=== PATIENT | female | born 1940 | race Caucasian/White ===

== ENCOUNTER 2016-07-21 21:22 | Observation (INO) | payer MEDICARE ==
[~2016-07-21] VITALS: Ht 175.3 cm; Wt 81.3 kg
[~2016-07-21 21:22] MED LIST: ASPI-94 PO; HYDR12.57 PO; MACR100C PO; MEVA40TA PO; VIVE0.05 TD
[2016-07-21 21:42] VITALS: BP 169/78; PULSE 65; RESP 18; TEMP 97.7; O2SAT 96
[2016-07-21] MEDS ORDERED: ESTR1DIS4 T-DERMAL (21:54)
[2016-07-21] MEDS ORDERED: HYDR12.57 PO (21:54)
[2016-07-21] MEDS ORDERED: LOVA40TA PO (21:54)
[2016-07-21] MEDS ORDERED: ASPI81CH CHEW (21:54)
[2016-07-21] MEDS ORDERED: SODIUM CHLOR 0.9% 1000 ML INJ 1,000 ML IV SCH ×2 (22:04→23:16)
[2016-07-21] MEDS ORDERED: ONDANSETRON HCL 4 MG/2 ML VIAL IVP ONE (22:15)
[2016-07-21] MEDS ORDERED: SODIUM CHLORIDE 0.9% FLUSH 10 ML FLUSH IV FLUSH PRN ×2 (22:15→23:30)
[2016-07-21] MEDS ORDERED: HYDROmorphone HCL PF 1 MG/ML VIAL IVS ONE (22:15)
--- NOTE | 2016-07-21 22:24 | PD ---
HPI Chief Complaint: Abdominal Pain Time Seen by Provider: 21:48 Travel History International Travel<30 days: No Contact w/Intl Traveler<30days: [place] Country Traveled to: [place], [place] Traveled to known affect area: No History of Present Illness HPI Is a 76-year-old woman presents emergent [place] of severe abdominal pain. States abdominal pain came on gradually around 4 PM or so. No nausea vomiting. No change in her bowel movements. Last bowel movement was around 8 PM was normal. No urinary symptoms. No fevers or chills. 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 She's done well since then. States she gets abdominal pains that are mild time to time, but never this severe. Only other abdominal surgeries hysterectomy. States she was feeling well and healthy before the onset of this pain. History Past Medical History Narrative Medical Questionable SLE, patient had a pericardiocentesis for paracardial effusion and was on medicines for lupus, but states that she is not taking any medicines now Hypertension on hyperlipidemia History of bowel perforation requiring resection and colostomy in August 2011, reversed in November 2011 Menopausal: Yes Social History Alcohol Use: Yes (SOCIALLY- WINE) Tobacco Use: No (QUIT AT AGE 30) Allergies-Medications (Allergen,Severity, Reaction): Coded Allergies: Iodine (Verified Allergy, Severe, Anaphylaxis, 07/21/16) Morphine (Verified Allergy, Severe, HALLUCINATIONS, 07/21/16) Shellfish (Verified Allergy, Severe, Anaphylaxis, 07/21/16) Reported Meds & Prescriptions Reported Meds & Active Scripts Active Reported Hydrochlorothiazide 12.5 Mg Cap 12.5 Mg PO DAILY Aspirin 81 Mg Chew 81 Mg CHEW DAILY Estradiol Patch 84 HR (Estradiol) 0.05 Mg/24 Hr Patch 1 Patch T-DERMAL 2XWEEK Remove old patch and discard when new patch being placed. Change same days each week. Lovastatin 40 Mg Tab 40 Mg PO DAILY Review of Systems Except as stated in HPI: all other systems reviewed are Neg Physical Exam Narrative GENERAL: Well-appearing 76-year-old woman, no acute distress. SKIN: Focused skin assessment warm/dry. NECK: Trachea midline. No JVD. CARDIOVASCULAR: Regular rate and rhythm. No murmur appreciated. RESPIRATORY: No accessory muscle use. Clear to auscultation. Breath sounds equal bilaterally. GASTROINTESTINAL: Normal contour and appearance. Abdomen soft, mild diffuse tenderness. No rebound or guarding. MUSCULOSKELETAL: No obvious deformities. No clubbing. No cyanosis. No edema. NEUROLOGICAL: Awake and alert. No obvious cranial nerve deficits. Motor grossly within normal limits. Normal speech. PSYCHIATRIC: Anxious appearing. Data Data Last Documented VS Vital Signs Date Time Temp Pulse Resp B/P Pulse Ox O2 Delivery O2 Flow Rate FiO2 07/21/16 22:45 69 16 141/76 96 Room Air 07/21/16 21:42 97.7 Orders Complete Blood Count With Diff (07/21/16 22:04) Comprehensive Metabolic Panel (07/21/16 22:04) Lipase (07/21/16 22:04) Lactic Acid (07/21/16 22:04) Urinalysis - C+S If Indicated (07/21/16 22:04) Iv Access Insert/Monitor (07/21/16 22:04) Ecg Monitoring (07/21/16 22:04) Oximetry (07/21/16 22:04) Ondansetron Inj (Zofran Inj) (07/21/16 22:15) Sodium Chlor 0.9% 1000 Ml Inj (Ns 1000 M (07/21/16 22:04) Sodium Chloride 0.9% Flush (Ns Flush) (07/21/16 22:15) Hydromorphone Pf Inj (Dilaudid Pf Inj) (07/21/16 22:15) Ct Abd/Pel W/O Iv Contrast (07/21/16 ) Labs Laboratory Tests Test 07/21/16 22:10 White Blood Count 10.9 TH/MM3 Red Blood Count 4.65 MIL/MM3 Hemoglobin 13.8 GM/DL Hematocrit 41.2 % Mean Corpuscular Volume 88.6 FL Mean Corpuscular Hemoglobin 29.6 PG Mean Corpuscular Hemoglobin 33.5 % Concent Red Cell Distribution Width 13.5 % Platelet Count 293 TH/MM3 Mean Platelet Volume 7.7 FL Neutrophils (%) (Auto) 85.7 % Lymphocytes (%) (Auto) 9.7 % Monocytes (%) (Auto) 3.3 % Eosinophils (%) (Auto) 0.3 % Basophils (%) (Auto) 1.0 % Neutrophils # (Auto) 9.3 TH/MM3 Lymphocytes # (Auto) 1.1 TH/MM3 Monocytes # (Auto) 0.4 TH/MM3 Eosinophils # (Auto) 0.0 TH/MM3 Basophils # (Auto) 0.1 TH/MM3 CBC Comment DIFF FINAL Differential Comment Sodium Level 140 MEQ/L Potassium Level 3.4 MEQ/L Chloride Level 102 MEQ/L Carbon Dioxide Level 30.5 MEQ/L Anion Gap 8 MEQ/L Blood Urea Nitrogen 17 MG/DL Creatinine 0.85 MG/DL Estimat Glomerular Filtration 65 ML/MIN Rate Random Glucose 120 MG/DL Lactic Acid Level 1.0 mmol/L Calcium Level 9.7 MG/DL Total Bilirubin 0.7 MG/DL Aspartate Amino Transf 20 U/L (AST/SGOT) Alanine Aminotransferase 25 U/L (ALT/SGPT) Alkaline Phosphatase 55 U/L Total Protein 7.2 GM/DL Albumin 3.8 GM/DL Lipase 128 U/L [facility] Medical Decision Making Medical Screen Exam Complete: Yes Emergency Medical Condition: Yes Interpretation(s) LABS: CBC is unremarkable. CMP is unremarkable. Lactate 1.[address] abdomen and pelvis: Multiple mildly dilated small bowel with some mild air- fluid levels. Evidence of prior abdominal surgery. Cannot exclude small bowel obstruction. Differential Diagnosis Abdominal pain, obstruction, adhesions, UTI, weakness, other Narrative Course Medical decision making INITIAL: 76-year-old woman, presents to the emergency department complaining of abdominal pain. No other GI symptoms, no nausea vomiting diarrhea urinary symptoms or other. She denies previous history of severe abdominal pains. She had one previous episode where she was seen for abdominal pain, no urinary complaints was sinus with UTI based on a handful white blood cells in her urine. She states she has done well since then. We'll recheck CT, labs, urine. She may be having some anxiety symptoms given her surgical history. FINAL: 76-year-old with previous bowel perforation and previous colostomy, now reversed, presents with abdominal pain of unclear etiology. CT scans equivocal with some mildly dilated small bowel loops in a few air-fluid levels. She does not appear distended. She is not vomiting. Pains improved after medication. We'll plan on admission for observation. Diagnosis Primary Impression: Abdominal pain Admitting Information Admitting Physician Requests: Observation Jose G Gallegos MD Jul 21, 2016 22:24
[2016-07-21 22:40] LABS: AUTOMATED NEUTROPHIL # 9.3 TH/MM3 (1.8-7.7); BASOPHIL # 0.1 TH/MM3 (0-0.2); CHLORIDE 102 MEQ/L (98-107); EOSINOPHIL % 0.3 % (0.0-4.0); HEMATOCRIT 41.2 % (35.0-46.0); LYMPH % 9.7 % (9.0-44.0); LYMPHOCYTE # 1.1 TH/MM3 (1.0-4.8); MEAN CELL VOLUME 88.6 FL (80.0-100.0); MEAN CORPUSCULAR HEMOGLOBIN 29.6 PG (27.0-34.0); MEAN CORPUSCULAR HGB CONC 33.5 % (32.0-36.0); MONO % 3.3 % (0.0-8.0); NEUT % 85.7 % (16.0-70.0); PLATELET COUNT 293 TH/MM3 (150-450); POTASSIUM 3.4 MEQ/L (3.5-5.1); RED BLOOD COUNT 4.65 MIL/MM3 (4.00-5.30); RED CELL DISTRIBUTION WIDTH 13.5 % (11.6-17.2); SODIUM (NA) 140 MEQ/L (136-145); WHITE BLOOD COUNT 10.9 TH/MM3 (4.0-11.0)
[2016-07-21 22:41] LABS: HEMO FLAGS DIFF FINAL
[2016-07-21 22:44] LABS: ANION GAP 8 MEQ/L (5-15); BICARBONATE 30.5 MEQ/L (21.0-32.0)
[2016-07-21 22:45] VITALS: BP 141/76; PULSE 69; RESP 16; O2SAT 96
[2016-07-21 22:45] LABS: BLOOD UREA NITROGEN 17 MG/DL (7-18)
[2016-07-21 22:47] LABS: ALT (GPT) 25 U/L (10-53); AST (GOT) 20 U/L (15-37); GLOMERULAR FILTRATION RATE 65 ML/MIN (>89)
[2016-07-21 22:49] LABS: TOTAL BILIRUBIN ADULT 0.7 MG/DL (0.2-1.0)
[2016-07-21 22:50] LABS: ALKALINE PHOSPHATASE 55 U/L (45-117)
--- NOTE | 2016-07-21 23:01 | RADHPO ---
EXAM DATE/TIME: 07/21/2016 22:25 [facility] COMPARISON: CT ABDOMEN & PELVIS W/O CONTRAST, March 14, 2014, 4:58. INDICATIONS : Severe mid abdominal pain. ORAL CONTRAST: No oral contrast ingested. RADIATION DOSE: 11.60 CTDIvol (mGy) MEDICAL HISTORY : Hypertension. SURGICAL HISTORY : Hysterectomy. Colostomy with reversal ENCOUNTER: Initial ACUITY: 1 day PAIN SCALE: 8/10 LOCATION: Bilateral abdomen TECHNIQUE: Volumetric scanning of the abdomen and pelvis was performed. Using automated exposure control and ad justment of the mA and/or kV according to patient size, radiation dose was kept as low as reasonably achievable to obtain optimal diagnostic quality images. FINDINGS: LOWER LUNGS: The visualized lower lungs are clear. LIVER: Stable 11 mm cyst left lobe. Stable low density lesion in the medial segment of the right lower lobe measuring 1.9 cm. These lesions cannot be further characterized on noncontrast study. No calcified gallstones. SPLEEN: Normal size without lesion. PANCREAS: Within normal limits. KIDNEYS: Normal in size and shape. There is no mass, stone, or hydronephrosis. ADRENAL GLANDS: Within normal limits. VASCULAR: There is no aortic aneurysm. BOWEL/MESENTERY: There are multiple mildly dilated loops of small bowel throughout the mid and lower abdomen measuring up to 3.1 cm in width. Only a few air-fluid levels seen. Anastomosis sutures seen in the rectosigm oid region. Scattered stool throughout the colon. No evidence of free fluid. ABDOMINAL WALL: Within normal limits. RETROPERITONEUM: There is no lymphadenopathy. BLADDER: No wall thickening or mass. REPRODUCTIVE: Within normal limits. INGUINAL: There is no lymphadenopathy or hernia. MUSCULOSKELETAL: Dilated sacral foramina of S2 bilaterally, stable from prior examination 2014. CONCLUSION: Multiple mildly dilated loops of small bowel with some mild air fluid levels. Evidence of prior abdo chucho surgery. Cannot exclude small bowel obstruction. Christian Julien MD on July 21, 2016 at 22:51 Board Certified Radiologist. This report was verified electronically.
[2016-07-21] MEDS ORDERED: LACTULOSE SYRUP 20 GM/30 ML CUP PO PRN (23:30)
[2016-07-21] MEDS ORDERED: BISACODYL 10 MG SUPP RECTAL PRN (23:30)
[2016-07-21] MEDS ORDERED: HYDROmorphone HCL PF 1 MG/ML VIAL IV PRN ×2 (23:30)
[2016-07-21] MEDS ORDERED: MAGNESIUM HYDROXIDE SUSP 30 ML CUP PO PRN (23:30)
[2016-07-21] MEDS ORDERED: SENNOSIDES 8.6 MG TAB PO PRN (23:30)
[2016-07-22] VITALS (7 sets, daily range): BP systolic 141–167; BP diastolic 67–85; PULSE 58–88; RESP 14–16; TEMP 96.1–97.5; O2SAT 95–99
[2016-07-22 00:41] LABS: BLOOD, URINE SMALL (NEG); GLUCOSE,URINE NEG (NEG); KETONE, URINE TRACE mg/dL (NEG); NITRITE,URINE NEG (NEG)
[2016-07-22 00:50] LABS: URINE COLOR YELLOW (YELLW/STRAW); WBC, URINE 15-19 /hpf (0-5)
[2016-07-22 00:51] LABS: BACTERIA, URINE MOD /hpf; COMMENT (UR) CULTURE INDICATED; CULTURE IF INDICATED CULTURE INDICATED; SQUAMOUS EPITHELIAL CELL URINE > 8 /hpf (0-5)
[2016-07-22] MEDS: DOCUSATE SODIUM 50 MG/SENNA 8.6 MG TAB PO SCH ×2 (08:44→20:27)
[2016-07-22 08:45] LABS: BASOPHIL # 0.1 TH/MM3 (0-0.2); EOSINOPHIL % 0.5 % (0.0-4.0); HEMATOCRIT 38.2 % (35.0-46.0); HEMO FLAGS DIFF FINAL; LYMPH % 20.6 % (9.0-44.0); LYMPHOCYTE # 1.2 TH/MM3 (1.0-4.8); MEAN CELL VOLUME 89.2 FL (80.0-100.0); MEAN CORPUSCULAR HEMOGLOBIN 29.8 PG (27.0-34.0); MEAN CORPUSCULAR HGB CONC 33.4 % (32.0-36.0); MONO % 6.2 % (0.0-8.0); NEUT % 71.7 % (16.0-70.0); PLATELET COUNT 270 TH/MM3 (150-450); RED BLOOD COUNT 4.29 MIL/MM3 (4.00-5.30); RED CELL DISTRIBUTION WIDTH 13.7 % (11.6-17.2); WHITE BLOOD COUNT 5.7 TH/MM3 (4.0-11.0)
[2016-07-22] MEDS: SODIUM CHLORIDE 0.9% FLUSH 10 ML FLUSH IV FLUSH SCH ×2 (08:45→20:29)
[2016-07-22] MEDS: NS + KCL 20 MEQ INJ 1,000 ML IV SCH ×2 (08:45→18:37)
[2016-07-22 08:54] LABS: CHLORIDE 104 MEQ/L (98-107); POTASSIUM 3.7 MEQ/L (3.5-5.1); SODIUM (NA) 142 MEQ/L (136-145)
[2016-07-22 08:57] LABS: ANION GAP 6 MEQ/L (5-15)
[2016-07-22 08:58] LABS: BLOOD UREA NITROGEN 14 MG/DL (7-18); MAGNESIUM 2.1 MG/DL (1.5-2.5)
[2016-07-22 09:01] LABS: ALT (GPT) 19 U/L (10-53); AST (GOT) 15 U/L (15-37); GLOMERULAR FILTRATION RATE 80 ML/MIN (>89)
[2016-07-22 09:02] LABS: TOTAL BILIRUBIN ADULT 0.8 MG/DL (0.2-1.0)
[2016-07-22 09:03] LABS: ALKALINE PHOSPHATASE 51 U/L (45-117)
--- NOTE | 2016-07-22 10:22 | HHI.HP ---
[facility] Primary Care Physician August Alejandra MD Admission Diagnosis abdominal pain, rule out obstruction Diagnoses: Chief Complaint: Abdominal pain Travel History International Travel<30 Days: No Contact w/Intl Traveler <30 Da: [place] Country Traveled to: [place], [place] Traveled to Known Affected Are: No History of Present Illness This is a 76-year-old female with a history of questionable SLE, pericardiocentesis for pericardial effusion, hypertension and hyperlipidemia. She presents to the emergency department because of acute severe dull constant lower abdominal pain for 5 hours not relieved with Tums. Denies nausea, vomiting, abdominal distention, fever, chills, UTI symptoms, constipation and diarrhea. She had regular bowel movement a few hours prior to admission. She presented to the hospital because she was concerned with her history of colonic rupture in 2011 requiring surgical resection and colostomy followed by reversal. She's done well since then. States she gets intermittent abdominal pains that are mild but not this severe. CT of the abdomen shows mildly dilated small bowel loops and few air-fluid levels small bowel obstruction cannot be excluded. Overnight she did well tolerated liquid diet denies abdominal pain. She has not passed gas or had a bowel movement. All other systems reviewed negative Review of Systems Except as stated in HPI: all other systems reviewed are Neg Past Family Social History Past Medical History As previously mentioned Past Surgical History Hysterectomy, cataract surgery, right foot bunion surgery Reported Medications Hydrochlorothiazide 12.5 Mg Cap 12.5 Mg PO DAILY Aspirin 81 Mg Chew 81 Mg CHEW DAILY Estradiol Patch 84 HR (Estradiol) 0.05 Mg/24 Hr Patch 1 Patch T-DERMAL 2XWEEK Remove old patch and discard when new patch being placed. Change same days each week. Lovastatin 40 Mg Tab 40 Mg PO DAILY Allergies: Coded Allergies: Iodine (Verified Allergy, Severe, Anaphylaxis, 07/21/16) Morphine (Verified Allergy, Severe, HALLUCINATIONS, 07/21/16) Shellfish (Verified Allergy, Severe, Anaphylaxis, 07/21/16) Family History No CAD or cancer Social History Occasional alcohol use. Quit tobacco at age 30 Physical Exam Vital Signs Vital Signs Date Time Temp Pulse Resp B/P Pulse Ox O2 Delivery O2 Flow Rate FiO2 07/22/16 08:45 16 07/22/16 08:00 97.0 58 16 144/67 98 07/22/16 01:59 97.5 74 14 146/74 96 07/22/16 00:44 88 16 167/72 99 Room Air 07/21/16 22:45 69 16 141/76 96 Room Air 07/21/16 21:42 97.7 65 18 169/78 96 Physical Exam GENERAL: This is a well-nourished, well-developed patient, in no apparent distress. SKIN: No rashes, ecchymoses or lesions. Cool and dry. HEAD: Atraumatic. Normocephalic. No temporal or scalp tenderness. EYES: Pupils equal round and reactive. Extraocular motions intact. No scleral icterus. No injection or drainage. ENT: Nose without bleeding, purulent drainage or septal hematoma. Throat without erythema, tonsillar hypertrophy or exudate. Uvula midline. Airway patent. NECK: Trachea midline. No JVD or lymphadenopathy. Supple, nontender, no meningeal signs. CARDIOVASCULAR: Regular rate and rhythm without murmurs, gallops, or rubs. RESPIRATORY: Clear to auscultation. Breath sounds equal bilaterally. No wheezes , rales, or rhonchi. GASTROINTESTINAL: Abdomen soft, non-tender, nondistended. No guarding. MUSCULOSKELETAL: Extremities without clubbing, cyanosis, or edema. No joint tenderness, effusion, or edema noted. No calf tenderness. Negative Homans sign bilaterally. NEUROLOGICAL: Awake and alert. Cranial nerves II through XII intact. Motor and sensory grossly within normal limits. Five out of 5 muscle strength in all muscle groups. Normal speech. Laboratory Laboratory Tests Test 07/21/16 07/22/16 07/22/16 22:10 00:30 07:45 Sodium Level 140 142 Potassium Level 3.4 3.7 Chloride Level 102 104 Carbon Dioxide Level 30.5 32.0 Anion Gap 8 6 Blood Urea Nitrogen 17 14 Creatinine 0.85 0.71 Estimat Glomerular Filtration 65 80 Rate Random Glucose 120 90 Lactic Acid Level 1.0 Calcium Level 9.7 9.9 Total Bilirubin 0.7 0.8 Aspartate Amino Transf 20 15 (AST/SGOT) Alanine Aminotransferase 25 19 (ALT/SGPT) Alkaline Phosphatase 55 51 Total Protein 7.2 6.0 Albumin 3.8 3.2 Lipase 128 White Blood Count 10.9 5.7 Red Blood Count 4.65 4.29 Hemoglobin 13.8 12.8 Hematocrit 41.2 38.2 Mean Corpuscular Volume 88.6 89.2 Mean Corpuscular Hemoglobin 29.6 29.8 Mean Corpuscular Hemoglobin 33.5 33.4 Concent Red Cell Distribution Width 13.5 13.7 Platelet Count 293 270 Mean Platelet Volume 7.7 7.5 Neutrophils (%) (Auto) 85.7 71.7 Lymphocytes (%) (Auto) 9.7 20.6 Monocytes (%) (Auto) 3.3 6.2 Eosinophils (%) (Auto) 0.3 0.5 Basophils (%) (Auto) 1.0 1.0 Neutrophils # (Auto) 9.3 4.0 Lymphocytes # (Auto) 1.1 1.2 Monocytes # (Auto) 0.4 0.4 Eosinophils # (Auto) 0.0 0.0 Basophils # (Auto) 0.1 0.1 CBC Comment DIFF FINAL DIFF FINAL Differential Comment Urine Color YELLOW Urine Turbidity CLOUDY Urine pH 7.0 Urine Specific [place] 1.010 Urine Protein NEG Urine Glucose (UA) NEG Urine Ketones TRACE Urine Occult Blood SMALL Urine Nitrite NEG Urine Bilirubin NEG Urine Leukocyte Esterase MOD Urine RBC 4-9 Urine WBC 15-19 Urine Squamous Epithelial > 8 Cells Urine Amorphous Sediment MOD Urine Bacteria MOD Microscopic Urinalysis Comment CULTURE INDICATED Magnesium Level 2.1 Date/Time Procedure Status Source Growth 07/22/16 00:30 Urine Culture Received Urine Clean Catch Pending Result Diagram: 07/22/16 0745 07/22/16 0745 Imaging Last Impressions Abdomen/Pelvis CT 07/21/16 0000 Signed Impressions: Service Date/Time: Thursday, July 21, 2016 22:25 - CONCLUSION: Multiple mildly dilated loops of small bowel with some mild air fluid levels. Evidence of prior abdominal surgery. Cannot exclude small bowel obstruction. Christian Julien MD Assessment and Plan Problem List: (1) Abdominal pain ICD Code: R10.9 Status: Acute Assessment and Plan This is a 76-year-old female who presents to the emergency department because of acute severe dull constant lower abdominal pain for 5 hours not relieved with Tums. Denies nausea, vomiting, abdominal distention, fever, chills, UTI symptoms, constipation and diarrhea. She had regular bowel movement a few hours prior to admission. She presented to the hospital because she was concerned with her history of colonic rupture in 2011 requiring surgical resection and colostomy followed by reversal. CT of the abdomen shows mildly dilated small bowel loops and few air-fluid levels small bowel obstruction cannot be excluded. Overnight she did well tolerated liquid diet denies abdominal pain. She has not passed gas or had a bowel movement. Repeat KUB today and continue IV fluids. Consider advancing diet. Increase activity. Continue pain management with IV dilaudid and bowel regimen Abnormal urinalysis. Denies UTI symptoms. Patient reports she always has abnormal urinalysis since she had colon surgery. She does not want to be treated unless urine culture is positive. Hypokalemia. Improved History of questionable SLE, pericardiocentesis for pericardial effusion, hypertension and hyperlipidemia. Continue outpatient medications as appropriate DVT prophylaxis with SCD and early ambulation Discussed Condition With Patient and ER staff Vincenzo Draper MD Jul 22, 2016 10:22
--- NOTE | 2016-07-22 10:44 | HHI.DCPOC ---
Discharge Care Plan Diagnosis: (1) Abdominal pain Your Health Problems Are: Difficulty with ADL Exercise Tolerance Goals to Promote Your Health * To prevent worsening of your condition and complications * To maintain your health at the optimal level Directions to Meet Your Goals Take your medications as prescribed Follow your dietary instruction Follow activity as directed Keep your appointments as scheduled Take your immunizations and boosters as scheduled If your symptoms worsen call your PCP, if no PCP go to Urgent Care Center or Emergency Room Smoking is Dangerous to Your Health. Avoid second hand smoke Call the 24-hour hour crisis hotline for domestic abuse at Vincenzo Draper MD Jul 22, 2016 10:44
--- NOTE | 2016-07-22 10:53 | RADHPO ---
EXAM DATE/TIME: 07/22/2016 10:29 [facility] COMPARISON: CT ABDOMEN & PELVIS W/O CONTRAST, July 21, 2016, 22:25. INDICATIONS : Abdomen pain MEDICAL HISTORY : None. SURGICAL HISTORY : Hysterectomy. colostomy with reversal ENCOUNTER: Subsequent ACUITY: 2 days PAIN SCORE: 2/10 LOCATION: Bilateral abdomen FINDINGS: Single AP supine view of the abdomen. Scattered gas and stool in the colon. Air in a non-distended st omach. Moderate bony degenerative findings of the lower lumbar spine. Oval calcific density in the le ft hemiabdomen at the level of L5 correlates with an apparent phlebolith on CT. CONCLUSION: Bowel gas pattern within normal limits. Aly Church MD on July 22, 2016 at 10:50 Board Certified Radiologist. This report was verified electronically.
[2016-07-23] VITALS: BP 141/67; PULSE 63; RESP 16; TEMP 97.6; O2SAT 96
[2016-07-23] MEDS: NS + KCL 20 MEQ INJ 1,000 ML IV SCH (05:09)
[2016-07-23 08:25] VITALS: BP 138/67; PULSE 61; RESP 15; TEMP 97.3; O2SAT 94
[2016-07-23] MEDS ORDERED: PRAVASTATIN SOD 40 MG TAB PO SCH (09:00)
[2016-07-23] MEDS: SODIUM CHLORIDE 0.9% FLUSH 10 ML FLUSH IV FLUSH SCH (09:00)
[2016-07-23] MEDS: DOCUSATE SODIUM 50 MG/SENNA 8.6 MG TAB PO SCH (09:52)
--- NOTE | 2016-07-23 11:51 | HHI.PR ---
Subjective Remarks Follow-up abdominal pain. She is feeling much better with no abdominal pain. She had a bowel movement and tolerating by mouth. Discussed with RN Objective Vitals Vital Signs Date Time Temp Pulse Resp B/P Pulse Ox O2 Delivery O2 Flow Rate FiO2 07/23/16 08:25 97.3 61 15 138/67 94 07/23/16 00:00 97.6 63 16 141/67 96 07/22/16 20:00 97.4 61 16 160/85 96 07/22/16 16:24 96.8 62 16 155/75 97 07/22/16 16:00 96.8 62 16 155/75 97 07/22/16 12:00 96.1 58 16 141/68 95 I/O 07/22/16 07/22/16 07/22/16 07/23/16 07/23/16 07/23/16 06:59 14:59 22:59 06:59 14:59 22:59 Intake Total 1250 ml 100 ml 276 ml 803 ml Balance 1250 ml 100 ml 276 ml 803 ml Intake Oral 250 ml 100 ml 240 ml IV Total 1000 ml 276 ml 563 ml # Voids 1 1 6 # Bowel Movements 0 Result Diagram: 07/22/16 0745 07/22/16 0745 Imaging Last Impressions Abdomen X-Ray 07/22/16 1007 Signed Impressions: Service Date/Time: Friday, July 22, 2016 10:29 - CONCLUSION: Bowel gas pattern within normal limits. Aly Church MD Abdomen/Pelvis CT 07/21/16 0000 Signed Impressions: Service Date/Time: Thursday, July 21, 2016 22:25 - CONCLUSION: Multiple mildly dilated loops of small bowel with some mild air fluid levels. Evidence of prior abdominal surgery. Cannot exclude small bowel obstruction. Christian Julien MD Objective Remarks GENERAL: This is a well-nourished, well-developed patient, in no apparent distress. SKIN: No rashes, ecchymoses or lesions. Cool and dry. HEAD: Atraumatic. Normocephalic. No temporal or scalp tenderness. EYES: Pupils equal round and reactive. Extraocular motions intact. No scleral icterus. No injection or drainage. ENT: Nose without bleeding, purulent drainage or septal hematoma. Throat without erythema, tonsillar hypertrophy or exudate. Uvula midline. Airway patent. NECK: Trachea midline. No JVD or lymphadenopathy. Supple, nontender, no meningeal signs. CARDIOVASCULAR: Regular rate and rhythm without murmurs, gallops, or rubs. RESPIRATORY: Clear to auscultation. Breath sounds equal bilaterally. No wheezes , rales, or rhonchi. GASTROINTESTINAL: Abdomen soft, non-tender, nondistended. No guarding. MUSCULOSKELETAL: Extremities without clubbing, cyanosis, or edema. No joint tenderness, effusion, or edema noted. No calf tenderness. Negative Homans sign bilaterally. NEUROLOGICAL: Awake and alert. Cranial nerves II through XII intact. Motor and sensory grossly within normal limits. Five out of 5 muscle strength in all muscle groups. Normal speech. Procedures None A/P Problem List: (1) Abdominal pain ICD Code: R10.9 Status: Acute Assessment and Plan This is a 76-year-old female who presents to the emergency department because of acute severe dull constant lower abdominal pain for 5 hours not relieved with Tums. Denies nausea, vomiting, abdominal distention, fever, chills, UTI symptoms, constipation and diarrhea. She had regular bowel movement a few hours prior to admission. She presented to the hospital because she was concerned with her history of colonic rupture in 2011 requiring surgical resection and colostomy followed by reversal. CT of the abdomen shows mildly dilated small bowel loops and few air-fluid levels small bowel obstruction cannot be excluded. Overnight she did well tolerated diet denies abdominal pain. She had a bowel movement. Repeat KUB within normal limits discontinue IV fluids. Increase activity. Continue pain management with IV dilaudid and bowel regimen Abnormal urinalysis. Denies UTI symptoms. Patient reports she always has abnormal urinalysis since she had colon surgery. She does not want to be treated unless urine culture is positive. Urine culture negative to date Hypokalemia. Improved History of questionable SLE, pericardiocentesis for pericardial effusion, hypertension and hyperlipidemia. Continue outpatient medications as appropriate DVT prophylaxis with SCD and early ambulation Discharge Planning Discharge patient to home Condition on discharge: Improved Regular Diet as tolerated Ad Lou activity Rx written: None Follow-up with primary care physician in one week Vincenzo Draper MD Jul 23, 2016 11:51
== END 2016-07-23 12:06 | disposition home or self-care (01) ==
LOC: PHED 21:22 → PHEDA 23:19 → PH3A 07-22 01:48
PROVIDERS: ADMIT Internal Medicine; ATTEND Internal Medicine
DX: R10.9 Unspecified abdominal pain (principal); R82.90 Unspecified abnormal findings in urine; I10 Essential (primary) hypertension; E87.6 Hypokalemia; E78.5 Hyperlipidemia, unspecified; Z87.891 Personal history of nicotine dependence; Z79.82 Long term (current) use of aspirin; Z91.013 Allergy to seafood; Z88.5 Allergy status to narcotic agent; Z88.8 Allergy status to other drugs, medicaments and biological substances
CPT/HCPCS: 74000; 74176; 80053; 81001; 83605; 83690; 83735; 85025; 87086; 96361; 96374; 96375; 99285; G0378; J1170; J2405; J3480; J7030

== ENCOUNTER 2016-08-02 22:21 | Observation (INO) | payer MEDICARE ==
[~2016-08-02] VITALS: Ht 175.3 cm; Wt 79.1 kg
[~2016-08-02 22:21] MED LIST changes: -ASPI-94 PO; +ASPI81CH CHEW; +ESTR1DIS4 T-DERMAL; +LOVA40TA PO; -MACR100C PO; -MEVA40TA PO; -VIVE0.05 TD
[2016-08-02 22:23] VITALS: BP 147/83; PULSE 73; RESP 16; TEMP 97.4; O2SAT 97
[2016-08-02] MEDS ORDERED: SODIUM CHLOR 0.9% 1000 ML INJ 1,000 ML IV SCH (22:54)
[2016-08-02] MEDS ORDERED: ONDANSETRON HCL 4 MG/2 ML VIAL IVP ONE (23:00)
[2016-08-02] MEDS ORDERED: SODIUM CHLORIDE 0.9% FLUSH 10 ML FLUSH IV FLUSH PRN (23:00)
[2016-08-02] MEDS ORDERED: HYDROmorphone HCL PF 2 MG/ML VIAL IVS ONE (23:00)
--- NOTE | 2016-08-02 23:08 | PD ---
HPI Chief Complaint: Abdominal Pain Time Seen by Provider: 22:31 Travel History International Travel<30 days: Yes Contact w/Intl Traveler<30days: Yes Name of Country Traveled to: [place] Traveled to known affect area: No History of Present Illness HPI This Is a 76-year-old woman presents emergent department complaining of severe abdominal pain. States she started getting abdominal pain around 6 PM or so. She had some on what for lunch. She's had nausea but no real vomiting. No change in her bowel movements. Less prominent was today was a little bit loose. No urinary symptoms. No fevers or chills. 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 She's done well since then. States she gets abdominal pains that are mild time to time, but not typically this severe. She was seen in the emergency department for abdominal pain 1 day on July 21, about 2 weeks ago. She has CT scan that showed some suggestion of small bowel obstruction with multiple mildly dilated loops of small bowel with some mild air -fluid levels. She was observed overnight, did well the next day was discharged home. She's done well since then until today. Only other abdominal surgeries hysterectomy. States she was feeling well and healthy before the onset of this pain. History Past Medical History Narrative Medical Questionable SLE, patient had a pericardiocentesis for paracardial effusion and was on medicines for lupus, but states that she is not taking any medicines now Hypertension on hyperlipidemia History of bowel perforation requiring resection and colostomy in August 2011, reversed in November 2011 Menopausal: Yes Social History Alcohol Use: Yes (SOCIALLY- WINE) Tobacco Use: No (QUIT AT AGE 30) Allergies-Medications (Allergen,Severity, Reaction): Coded Allergies: Iodine (Verified Allergy, Severe, Anaphylaxis, 08/02/16) Morphine (Verified Allergy, Severe, HALLUCINATIONS, 08/02/16) Shellfish (Verified Allergy, Severe, Anaphylaxis, 08/02/16) Reported Meds & Prescriptions Reported Meds & Active Scripts Active Reported Hydrochlorothiazide 12.5 Mg Cap 12.5 Mg PO DAILY Aspirin 81 Mg Chew 81 Mg CHEW DAILY Estradiol Patch 84 HR (Estradiol) 0.05 Mg/24 Hr Patch 1 Patch T-DERMAL 2XWEEK Remove old patch and discard when new patch being placed. Change same days each week. Lovastatin 40 Mg Tab 40 Mg PO DAILY Review of Systems Except as stated in HPI: all other systems reviewed are Neg Physical Exam Narrative GENERAL: Well-appearing 76-year-old woman, appears uncomfortable but nontoxic. SKIN: Focused skin assessment warm/dry. NECK: Trachea midline. No JVD. CARDIOVASCULAR: Regular rate and rhythm. No murmur appreciated. RESPIRATORY: No accessory muscle use. Clear to auscultation. Breath sounds equal bilaterally. GASTROINTESTINAL: Abdomen soft. She may have a little bit of lower abdominal distention. She is some mild to moderate diffuse tenderness. MUSCULOSKELETAL: No obvious deformities. No clubbing. No cyanosis. No edema. NEUROLOGICAL: Awake and alert. No obvious cranial nerve deficits. Motor grossly within normal limits. Normal speech. PSYCHIATRIC: Anxious appearing. Data Data Last Documented VS Vital Signs Date Time Temp Pulse Resp B/P Pulse Ox O2 Delivery O2 Flow Rate FiO2 08/02/16 22:23 97.4 73 16 147/83 97 Orders Complete Blood Count With Diff (08/02/16 22:54) Comprehensive Metabolic Panel (08/02/16 22:54) Lipase (08/02/16 22:54) Lactic Acid (08/02/16 22:54) Iv Access Insert/Monitor (08/02/16 22:54) Ecg Monitoring (08/02/16 22:54) Oximetry (08/02/16 22:54) Hydromorphone Pf Inj (Dilaudid Pf Inj) (08/02/16 23:00) Ondansetron Inj (Zofran Inj) (08/02/16 23:00) Sodium Chlor 0.9% 1000 Ml Inj (Ns 1000 M (08/02/16 22:54) Sodium Chloride 0.9% Flush (Ns Flush) (08/02/16 23:00) Ct Abd/Pel W/O Iv Contrast (08/02/16 ) Labs Laboratory Tests Test 08/02/16 08/02/16 23:10 23:30 White Blood Count 15.3 TH/MM3 Red Blood Count 5.16 MIL/MM3 Hemoglobin 15.2 GM/DL Hematocrit 45.7 % Mean Corpuscular Volume 88.5 FL Mean Corpuscular Hemoglobin 29.4 PG Mean Corpuscular Hemoglobin 33.2 % Concent Red Cell Distribution Width 13.0 % Platelet Count 283 TH/MM3 Mean Platelet Volume 8.0 FL Neutrophils (%) (Auto) % Lymphocytes (%) (Auto) % Monocytes (%) (Auto) % Eosinophils (%) (Auto) % Basophils (%) (Auto) % Neutrophils # (Auto) TH/MM3 Lymphocytes # (Auto) TH/MM3 Monocytes # (Auto) TH/MM3 Eosinophils # (Auto) TH/MM3 Basophils # (Auto) TH/MM3 CBC Comment AUTO DIFF Differential Total Cells 100 Counted Neutrophils % (Manual) 74 % Band Neutrophils % 11 % Lymphocytes % 11 % Monocytes % 4 % Neutrophils # (Manual) 13.0 TH/MM3 Differential Comment FINAL DIFF MANUAL Platelet Estimate NORMAL Platelet Morphology Comment NORMAL Red Cell Morphology Comment NORMAL Sodium Level 141 MEQ/L Potassium Level 3.4 MEQ/L Chloride Level 100 MEQ/L Carbon Dioxide Level 29.8 MEQ/L Anion Gap 11 MEQ/L Blood Urea Nitrogen 16 MG/DL Creatinine 0.91 MG/DL Estimat Glomerular Filtration 60 ML/MIN Rate Random Glucose 117 MG/DL Calcium Level 9.9 MG/DL Total Bilirubin 0.9 MG/DL Aspartate Amino Transf 22 U/L (AST/SGOT) Alanine Aminotransferase 23 U/L (ALT/SGPT) Alkaline Phosphatase 65 U/L Total Protein 7.9 GM/DL Albumin 4.3 GM/DL Lipase 135 U/L Lactic Acid Level 1.2 mmol/L MDM Medical Decision Making Medical Screen Exam Complete: Yes Emergency Medical Condition: Yes Interpretation(s) LABS: CBC remarkable for mild leukocytosis, bandemia CMP unremarkable Lipase normal Lactate normal CT abdomen and pelvis: Diffuse small bowel dilatation likely related to ileus. Follow-up examination is recommended if clinically indicated. Differential Diagnosis Obstruction, colitis, ischemia, other Narrative Course Medical decision making INITIAL: 76-year-old woman with a past surgical history the abdomen, now with intermittent pain, severe, concerning for obstruction. She'll be having intermittent obstruction, or intermittent volvulus. We'll repeat CT given her surgical history and age, check labs, reassess. FINAL: White blood cell count ELEVATED. CT SCAN SHOWS DIFFUSE DILATATION OF THE SMALL BOWEL SUGGESTIVE ILEUS. OBSTRUCTION STILL POSSIBLE. GIVEN HER HISTORY, ABNORMAL FINDINGS, ABNORMAL LABS, WILL RECOMMEND ADMISSION. DISCUSSED NG TUBE WITH THE PATIENT. SHE IS NOT HAVING ANY SYMPTOMS NOW. We'll monitor her, if she develops any worsening symptoms which strongly consider NG tube. She agrees to report any worsening symptoms. Diagnosis Primary Impression: Abdominal pain Additional Impression: Ileus, unspecified Admitting Information Admitting Physician Requests: Observation Jose G Gallegos MD Aug 02, 2016 23:08 Jose G Gallegos MD Aug 02, 2016 23:08
[2016-08-02 23:24] LABS: HEMATOCRIT 45.7 % (35.0-46.0); MEAN CELL VOLUME 88.5 FL (80.0-100.0); MEAN CORPUSCULAR HEMOGLOBIN 29.4 PG (27.0-34.0); MEAN CORPUSCULAR HGB CONC 33.2 % (32.0-36.0); PLATELET COUNT 283 TH/MM3 (150-450); RED BLOOD COUNT 5.16 MIL/MM3 (4.00-5.30); WHITE BLOOD COUNT 15.3 TH/MM3 (4.0-11.0)
[2016-08-02 23:27] LABS: HEMO FLAGS AUTO DIFF
[2016-08-02 23:35] LABS: CHLORIDE 100 MEQ/L (98-107); POTASSIUM 3.4 MEQ/L (3.5-5.1); SODIUM (NA) 141 MEQ/L (136-145)
[2016-08-02 23:39] LABS: ANION GAP 11 MEQ/L (5-15); BICARBONATE 29.8 MEQ/L (21.0-32.0); BLOOD UREA NITROGEN 16 MG/DL (7-18)
[2016-08-02 23:42] LABS: ALT (GPT) 23 U/L (10-53); AST (GOT) 22 U/L (15-37); GLOMERULAR FILTRATION RATE 60 ML/MIN (>89)
[2016-08-02 23:43] LABS: TOTAL BILIRUBIN ADULT 0.9 MG/DL (0.2-1.0)
[2016-08-02 23:44] LABS: ALKALINE PHOSPHATASE 65 U/L (45-117); BANDS 11 % (0-6); PLATELET ESTIMATE SMEAR NORMAL (NORMAL); PLATELET MORPHOLOGY NORMAL (NORMAL); POLYS (SEG NEUTROPHILS) 74 % (16-70); SCAN/DIFF FINAL DIFF MANUAL; WBC DIFF SAMPLE 100
--- NOTE | 2016-08-02 23:52 | RADHPO ---
EXAM DATE/TIME: 08/02/2016 23:09 [facility] COMPARISON: CT ABDOMEN & PELVIS W/O CONTRAST, July 21, 2016, 22:25. INDICATIONS : Diffuse abdominal pain starting this evening. ORAL CONTRAST: No oral contrast ingested. RADIATION DOSE: 10.12 CTDIvol (mGy) MEDICAL HISTORY : Hypertension. Cardiovascular disease SURGICAL HISTORY : Colostomy. Hysterectomy.colostomy reversal ENCOUNTER: Initial ACUITY: 1 day PAIN SCALE: 6/10 LOCATION: abdomen TECHNIQUE: Volumetric scanning of the abdomen and pelvis was performed. Using automated exposure control and ad justment of the mA and/or kV according to patient size, radiation dose was kept as low as reasonably achievable to obtain optimal diagnostic quality images. FINDINGS: Examination of the lung bases demonstrates no abnormality. No pleural fluid is identified. No pulmona ry nodules are present. A small pericardial effusion is present. The liver and spleen are normal in s ize and no focal defects are identified with the exception of a 10 mm cyst in segment 4. The gallblad da and pancreas are unremarkable. No intrahepatic or extrahepatic ductal dilatation is seen. The adr enal glands and kidneys appear normal bilaterally. No hydronephrosis or mass lesions are identified. There is gastric distention as well as dilatation of small bowel throughout to the level of the termi nal ileum. This likely reflects ileus. The findings are similar to the prior exam. No free fluid is i dentified. A staple line is present in the sigmoid colon. CONCLUSION: 1. Diffuse small bowel dilatation likely related to ileus. Followup examination is recommended if cli nically indicated. Dhaval Steele MD on August 02, 2016 at 23:47 Board Certified Radiologist. This report was verified electronically.
[2016-08-03] VITALS (10 sets, daily range): BP systolic 118–149; BP diastolic 65–80; PULSE 55–79; RESP 16–18; TEMP 96.3–98.4; O2SAT 96–99
[2016-08-03] MEDS ORDERED: NALOXONE HCL 0.4 MG/ML AMP IV PRN (00:45)
[2016-08-03] MEDS ORDERED: SODIUM CHLORIDE 0.9% FLUSH 10 ML FLUSH IV FLUSH PRN (00:45)
[2016-08-03] MEDS ORDERED: HYDROmorphone HCL PF 1 MG/ML VIAL IV PUSH PRN (01:00)
[2016-08-03] MEDS: POTASSIUM CHLOR 20 MEQ PREMIX 100 ML IV SCH ×2 (01:23→03:51)
--- NOTE | 2016-08-03 09:06 | HHI.HP ---
cc: August Alejandra MD [facility] Service [facility] Primary Care Physician August Alejandra MD Admission Diagnosis obstruction versus ileus Diagnoses: (1) Ileus, unspecified Diagnosis: Principal (2) Abdominal pain (3) Hyperlipidemia (4) Hypertension (5) Hypokalemia (6) Leukocytosis Chief Complaint: Abdominal pain Travel History International Travel<30 Days: Yes Contact w/Intl Traveler <30 Da: Yes Name of Country Traveled to: [place] Traveled to Known Affected Are: No History of Present Illness The patient is a 76-year-old female who presented to the emergency department with complaint of abdominal pain that started yesterday evening around 6 PM. She 8 something at about 4 PM. She had been feeling fine prior to the onset of abdominal pain. She has nausea, but no vomiting. She has history of multiple abdominal surgeries, including partial colectomy for colon perforation in 2011 with colostomy and reversal. She had a similar episode of abdominal pain about 2 weeks ago and was hospitalized briefly. She states that she had been seeing Dr. Hammonds for colorectal surgery. She believes that she is due for a colonoscopy soon. Her abdominal pain is somewhat better this morning. She has not had a bowel movement, but did have flatus this morning. Review of Systems Constitutional: DENIES: Fever, Chills, Night Sweats Eyes: DENIES: Blurred vision, Vision loss Ears, nose, mouth, throat: DENIES: Hearing loss Respiratory: DENIES: Cough, Wheezing, Sputum production, Shortness of breath Cardiovascular: DENIES: Chest pain, Palpitations, Dyspnea on Exertion, Lower Extremity Edema Gastrointestinal: COMPLAINS OF: Abdominal pain, Constipation, Nausea, DENIES: Diarrhea, Vomiting Genitourinary: DENIES: Urinary frequency, Urinary incontinence, Urgency, Hematuria, Dysuria, Nocturia Musculoskeletal: DENIES: Joint pain, Muscle aches Integumentary: DENIES: Pruritus, Rash Hematologic/lymphatic: DENIES: Bruising Neurologic: DENIES: Headache Past Family Social History Past Medical History Questionable history of SLE History of pericardial effusion History of colon perforation Hypertension Hyperlipidemia Past Surgical History Hysterectomy Partial colectomy with colostomy in August 2011 Colostomy takedown in November 2011 Reported Medications Hydrochlorothiazide 12.5 Mg Cap 12.5 Mg PO DAILY Aspirin 81 Mg Chew 81 Mg CHEW DAILY Estradiol Patch 84 HR (Estradiol) 0.05 Mg/24 Hr Patch 1 Patch T-DERMAL 2XWEEK Remove old patch and discard when new patch being placed. Change same days each week. Lovastatin 40 Mg Tab 40 Mg PO DAILY Allergies: Coded Allergies: Iodine (Verified Allergy, Severe, Anaphylaxis, 08/02/16) Morphine (Verified Allergy, Severe, HALLUCINATIONS, 08/02/16) Shellfish (Verified Allergy, Severe, Anaphylaxis, 08/02/16) Family History Denies Social History Remote smoking history, quit at age 30. Occasional alcohol use. Denies illicit drug use. Physical Exam Vital Signs Vital Signs Date Time Temp Pulse Resp B/P Pulse Ox O2 Delivery O2 Flow Rate FiO2 08/03/16 08:00 97.5 64 17 118/65 96 08/03/16 05:00 96.5 68 16 140/78 97 08/03/16 04:45 61 08/03/16 02:20 96.3 64 18 149/80 96 08/03/16 01:05 78 16 132/70 99 Room Air 08/02/16 22:23 97.4 73 16 147/83 97 Physical Exam GENERAL: Elderly female in no acute distress. HEENT: Normocephalic, atraumatic. Pupils equal, round and reactive. Extraocular movements intact. No scleral icterus. No injection or drainage. Oropharynx is clear. Mucous membranes are moist. CARDIOVASCULAR: Regular rate and rhythm without murmurs, gallops, or rubs. RESPIRATORY: Clear to auscultation. No wheezes, rales, or rhonchi. Breathing is non-labored. GASTROINTESTINAL: Abdomen soft, nondistended. Mild diffuse tenderness to palpation without rebound or guarding. EXTREMITIES: No lower extremity edema. No calf tenderness. PSYCH: Alert and oriented x 3. Laboratory Laboratory Tests Test 08/02/16 08/02/16 23:10 23:30 White Blood Count 15.3 Red Blood Count 5.16 Hemoglobin 15.2 Hematocrit 45.7 Mean Corpuscular Volume 88.5 Mean Corpuscular Hemoglobin 29.4 Mean Corpuscular Hemoglobin 33.2 Concent Red Cell Distribution Width 13.0 Platelet Count 283 Mean Platelet Volume 8.0 Neutrophils (%) (Auto) Lymphocytes (%) (Auto) Monocytes (%) (Auto) Eosinophils (%) (Auto) Basophils (%) (Auto) Neutrophils # (Auto) Lymphocytes # (Auto) Monocytes # (Auto) Eosinophils # (Auto) Basophils # (Auto) CBC Comment AUTO DIFF Differential Total Cells 100 Counted Neutrophils % (Manual) 74 Band Neutrophils % 11 Lymphocytes % 11 Monocytes % 4 Neutrophils # (Manual) 13.0 Differential Comment FINAL DIFF MANUAL Platelet Estimate NORMAL Platelet Morphology Comment NORMAL Red Cell Morphology Comment NORMAL Sodium Level 141 Potassium Level 3.4 Chloride Level 100 Carbon Dioxide Level 29.8 Anion Gap 11 Blood Urea Nitrogen 16 Creatinine 0.91 Estimat Glomerular Filtration 60 Rate Random Glucose 117 Calcium Level 9.9 Total Bilirubin 0.9 Aspartate Amino Transf 22 (AST/SGOT) Alanine Aminotransferase 23 (ALT/SGPT) Alkaline Phosphatase 65 Total Protein 7.9 Albumin 4.3 Lipase 135 Lactic Acid Level 1.2 Result Diagram: 08/02/16 2310 08/02/16 2310 Imaging Last Impressions Abdomen/Pelvis CT 08/02/16 0000 Signed Impressions: Service Date/Time: July 23:09 - CONCLUSION: 1. Diffuse small bowel dilatation likely related to ileus. Followup examination is recommended if clinically indicated. Dhaval Steele MD Assessment and Plan Assessment and Plan 1. Abdominal pain, ileus: Patient has history of multiple abdominal surgeries in the past including partial colectomy. This is her second episode of ileus/ obstruction in the past 2 weeks. She feels a little better this morning. Continue IV fluids. Consider colorectal surgery consult if no improvement. Patient follows with Dr. Hammonds. 2. Hypertension: Continue HCTZ. 3. Hyperlipidemia: Continue statin. 4. Leukocytosis: Possibly stress reaction. Monitor labs. 5. Hypokalemia: Supplement potassium. Recheck labs in the morning. 6. DVT prophylaxis: [place], BRISA bowman. Gabriel Ha MD Aug 03, 2016 09:06
[2016-08-03] MEDS: NS + KCL 20 MEQ INJ 1,000 ML IV SCH ×2 (10:13→22:16)
[2016-08-03] MEDS: SODIUM CHLORIDE 0.9% FLUSH 10 ML FLUSH IV FLUSH SCH ×2 (10:13→21:00)
[2016-08-03] MEDS ORDERED: PATIENT OWN MEDICATION SCH (12:00)
[2016-08-04] VITALS: BP 150/76; PULSE 54; RESP 20; TEMP 96.7; O2SAT 95
[2016-08-04 04:00] VITALS: BP 142/74; PULSE 52; RESP 20; TEMP 96; O2SAT 97
--- NOTE | 2016-08-04 06:38 | RADHPO ---
EXAM DATE/TIME: 08/04/2016 05:58 [facility] COMPARISON: No previous studies available for comparison. INDICATIONS : Abdominal distention. MEDICAL HISTORY : Hypertension. Cardiovascular disease SURGICAL HISTORY : Hysterectomy. colostomy with reversal ENCOUNTER: Subsequent ACUITY: 3 days PAIN SCORE: 0/10 LOCATION: Bilateral abdomen FINDINGS: Supine view of the abdomen was performed. The abdominal bowel gas pattern is normal. No abnormal ma sses, calcifications, or organomegaly is seen. The osseous structures are unremarkable. CONCLUSION: 1. No acute findings. Stable calcification left lower quadrant. No evidence for obstruction. Jc Hull MD on August 04, 2016 at 6:34 Board Certified Radiologist. This report was verified electronically.
[2016-08-04 07:41] LABS: AUTOMATED NEUTROPHIL # 2.3 TH/MM3 (1.8-7.7); BASOPHIL % 0.5 % (0.0-2.0); EOSINOPHIL # 0.1 TH/MM3 (0-0.4); EOSINOPHIL % 2.9 % (0.0-4.0); HEMATOCRIT 40.2 % (35.0-46.0); HEMO FLAGS DIFF FINAL; LYMPH % 33.8 % (9.0-44.0); LYMPHOCYTE # 1.3 TH/MM3 (1.0-4.8); MEAN CELL VOLUME 91.5 FL (80.0-100.0); MEAN CORPUSCULAR HEMOGLOBIN 29.9 PG (27.0-34.0); MEAN CORPUSCULAR HGB CONC 32.7 % (32.0-36.0); MONO % 6.2 % (0.0-8.0); NEUT % 56.6 % (16.0-70.0); PLATELET COUNT 216 TH/MM3 (150-450); RED BLOOD COUNT 4.39 MIL/MM3 (4.00-5.30); RED CELL DISTRIBUTION WIDTH 13.7 % (11.6-17.2); WHITE BLOOD COUNT 3.9 TH/MM3 (4.0-11.0)
[2016-08-04 07:54] VITALS: BP 148/68; PULSE 53; RESP 18; TEMP 96.5; O2SAT 98
[2016-08-04 08:02] LABS: BICARBONATE 24.5 MEQ/L (21.0-32.0); POTASSIUM 4.2 MEQ/L (3.5-5.1)
[2016-08-04 08:50] VITALS: PULSE 55
[2016-08-04] MEDS: SODIUM CHLORIDE 0.9% FLUSH 10 ML FLUSH IV FLUSH SCH (08:50)
[2016-08-04] MEDS: NS + KCL 20 MEQ INJ 1,000 ML IV SCH (08:54)
[2016-08-04] MEDS ORDERED: PRAVASTATIN SOD 40 MG TAB PO SCH (09:00)
[2016-08-04] MEDS ORDERED: ASPIRIN 81 MG CHEW TAB CHEW SCH (09:00)
[2016-08-04] MEDS ORDERED: HYDROCHLOROTHIAZIDE 12.5 MG CAP PO SCH (09:00)
--- NOTE | 2016-08-04 09:56 | HHI.PR ---
Subjective Remarks Follow up abdominal pain. Patient states that her abdominal pain is much better. She had a "small" bowel movement last night. She does report flatus. No nausea or vomiting. Feels that she is ready to advance her diet. Objective Vitals Vital Signs Date Time Temp Pulse Resp B/P Pulse Ox O2 Delivery O2 Flow Rate FiO2 08/04/16 08:50 55 08/04/16 07:54 96.5 53 18 148/68 98 08/04/16 04:00 96.0 52 20 142/74 97 08/04/16 00:00 96.7 54 20 150/76 95 08/03/16 22:54 98.4 79 18 136/75 97 08/03/16 20:00 59 08/03/16 16:00 98.0 55 18 131/70 98 08/03/16 12:00 97.5 63 18 132/73 98 I/O 08/03/16 08/03/16 08/03/16 08/04/16 08/04/16 08/04/16 06:59 14:59 22:59 06:59 14:59 22:59 Intake Total 1801 ml 336 ml 60 ml Output Total 0 ml Balance 1801 ml 336 ml 60 ml Intake Oral 280 ml 60 ml IV Total 1521 ml 336 ml Output Urine Total 0 ml # Voids 2 0 # Bowel Movements 0 0 Result Diagram: 08/04/16 0643 08/04/16 0643 Imaging Last Impressions Abdomen X-Ray 08/04/16 0600 Signed Impressions: Service Date/Time: Thursday, August 04, 2016 05:58 - CONCLUSION: 1. No acute findings. Stable calcification left lower quadrant. No evidence for obstruction. Jc Hull MD Abdomen/Pelvis CT 08/02/16 0000 Signed Impressions: Service Date/Time: July 23:09 - CONCLUSION: 1. Diffuse small bowel dilatation likely related to ileus. Followup examination is recommended if clinically indicated. Dhaval Steele MD Objective Remarks General: No acute distress. Heart: Regular rate and rhythm. No murmur. Lungs: Clear to auscultation bilaterally. No wheezes, rales, or rhonchi. Breathing is nonlabored. Abdomen: Soft, nontender, nondistended. Positive bowel sounds. Extremities: No lower extremity edema. Psych: Alert and oriented. Procedures None Urinary Catheter: No Vascular Central Line Catheter: No A/P Problem List: (1) Ileus, unspecified ICD Code: K56.7 Status: Acute (2) Abdominal pain ICD Code: R10.9 Status: Acute (3) Hyperlipidemia ICD Code: E78.5 Status: Acute (4) Hypertension ICD Code: I10 Status: Acute (5) Hypokalemia ICD Code: E87.6 Status: Acute (6) Leukocytosis ICD Code: D72.829 Status: Acute Assessment and Plan 1. Abdominal pain, ileus: Patient has history of multiple abdominal surgeries in the past including partial colectomy. This is her second episode of ileus/ obstruction in the past 2 weeks. Symptoms are improving. Continue IV fluids. Patient follows with Dr. Hammonds colorectal surgery. Advance diet. 2. Hypertension: Continue HCTZ. 3. Hyperlipidemia: Continue statin. 4. Leukocytosis: Possibly stress reaction. WBCs decreased today. 5. Hypokalemia: Resolved. 6. DVT prophylaxis: SCDs, BRISA bowman. Discharge Planning Possible discharge home later today if patient tolerates advanced diet. Gabriel Ha MD Aug 04, 2016 09:56
[2016-08-04 12:00] VITALS: BP 120/68; PULSE 68; RESP 18; TEMP 96.7; O2SAT 98
--- NOTE | 2016-08-04 13:31 | HHI.DCPOC ---
Discharge Care Plan Diagnosis: (1) Ileus, unspecified (2) Hypertension (3) Abdominal pain (4) Hypokalemia (5) Hyperlipidemia (6) Leukocytosis Goals to Promote Your Health * To prevent worsening of your condition and complications * To maintain your health at the optimal level Directions to Meet Your Goals Take your medications as prescribed Follow your dietary instruction Follow activity as directed Keep your appointments as scheduled Take your immunizations and boosters as scheduled If your symptoms worsen call your PCP, if no PCP go to Urgent Care Center or Emergency Room Smoking is Dangerous to Your Health. Avoid second hand smoke Call the 24-hour hour crisis hotline for domestic abuse at Gabriel Ha MD Aug 04, 2016 13:31
== END 2016-08-04 14:30 | disposition home or self-care (01) ==
LOC: PHED 22:21 → UNDOADMOB 08-03 00:39 → PHEDA 08-03 00:39 → PH3A 08-03 01:58 → PHEDA 08-03 01:58 → UNDODISOB 08-04 14:30
PROVIDERS: ADMIT Family Medicine; ATTEND Family Medicine
DX: K56.7 Ileus, unspecified (principal); K56.2 Volvulus; I10 Essential (primary) hypertension; E78.5 Hyperlipidemia, unspecified; D72.829 Elevated white blood cell count, unspecified; E87.6 Hypokalemia; K59.00 Constipation, unspecified; I31.3 Pericardial effusion (noninflammatory); Z87.891 Personal history of nicotine dependence; Z79.899 Other long term (current) drug therapy; Z79.82 Long term (current) use of aspirin
CPT/HCPCS: 74000; 74176; 80048; 80053; 83605; 83690; 85007; 85025; 85027; 96374; 96375; 96376; 97162; 99285; G0378; G8987; G8988; J1170; J2405; J3480; J7030